=== PATIENT | female | born 1995 | race Caucasian/White ===

== ENCOUNTER 2018-09-28 23:11 | Observation (INO) | payer OTHER ==
[2018-09-28] MEDS: EPINEPHrine 1 MG INJ IM (23:29)
[2018-09-28] MEDS: FAMOTIDINE 20 MG INJ IV (23:40)
[2018-09-28] MEDS: DIPHENHYDRAMINE 50 MG INJ IV (23:40)
[2018-09-28] MEDS: METHYLPREDNISOLONE 125 MG INJ IV (23:40)
[2018-09-28] MEDS: ALBUTEROL 0.083% (NEB) 2.5 MG/3 ML AMP INH (23:42)
[2018-09-29] MEDS: RACEPINEPHRINE 2.25%(NEB) 0.5 ML AMP HHN ×3 (02:03→15:41)
[2018-09-29 02:04] LABS: ADD MAN DIFF? NO
[2018-09-29 02:05] LABS: ABNORMAL IP MESSAGE 1; BASOPHILS % 0.1 % (0.0-2.0); HEMATOCRIT 35.2 % (37.0-47.0); HEMOGLOBIN 11.9 g/dl (12.0-16.0); LYMPHOCYTES # 0.4 10^3/ul (0.8-2.9); MEAN CORPUSCULAR HEMOGLOBIN 31.3 pg (29.0-33.0); MEAN CORPUSCULAR HGB CONC 33.8 g/dl (32.0-37.0); MEAN CORPUSCULAR VOLUME 92.6 fl (82.0-101.0); MONOCYTE # 0.1 10^3/ul (0.3-0.9); NEUTROPHIL # 9.8 10^3/ul (1.6-7.5); NEUTROPHILS % 94.4 % (39.0-77.0); PLATELET COUNT 252 10^3/UL (140-415); RED CELL DISTRIBUTION WIDTH 12.5 % (11.5-14.5)
[2018-09-29 02:05] LABS: WHITE BLOOD COUNT 10.3 10^3/ul (4.8-10.8)
[2018-09-29 02:15] LABS: POSITIVE DIFF @See below
[2018-09-29 02:26] LABS: ANION GAP 14 (5-13); BLOOD UREA NITROGEN 8 mg/dl (7-20); CALCIUM 9.1 mg/dl (8.4-10.2); CARBON DIOXIDE 17 mmol/L (21-31); CHLORIDE 113 mmol/L (97-110); CREATININE 0.61 mg/dl (0.44-1.00); Estimated GFR > 60 mL/min (>60); GLUCOSE 206 mg/dl (70-220); POTASSIUM 3.5 mmol/L (3.5-5.1); SODIUM 144 mmol/L (135-144)
[2018-09-29] MEDS ORDERED: ONDANSETRON 4 MG INJ IV ×2 (03:00)
[2018-09-29] MEDS ORDERED: NACL 0.9% 3 ML SYG IV (03:00)
[2018-09-29] MEDS ORDERED: ACETAMINOPHEN 325 MG TAB PO ×2 (03:00)
[2018-09-29] MEDS ORDERED: DOCUSATE SODIUM 100 MG CAP PO (03:00)
[2018-09-29] MEDS ORDERED: ALBUTEROL 0.083% (NEB) 2.5 MG/3 ML AMP HHN (03:00)
[2018-09-29] MEDS ORDERED: BISACODYL (EC) 5 MG TAB PO (03:00)
[2018-09-29] MEDS: SOD CHLORIDE 0.9% 1,000 ML IV (05:04)
[2018-09-29] MEDS: LORAZEPAM 2 MG INJ IV (05:44)
[2018-09-29] MEDS: METHYLPREDNISOLONE 40 MG INJ IV (05:44)
[2018-09-29 07:05] LABS: ETHANOL < 10.0 mg/dl (0-0)
[2018-09-29 07:23] LABS: AADO2 Arterial 22.3 mmHg (7.0-24.0); Allen Test ACCEPTAB; Arterial Base Excess -2.7 mmol/L (-3.0-3); Arterial Blood Gas Oxygen Sat 98.4 mmHG (95.0-98.0); Arterial COHb 0.3 % (0.0-3.0); Arterial Fraction of Oxyhgb 97.8 % (93.0-99.0); Arterial HCO3 17.3 mmol/L (22.0-26.0); Arterial MetHb 0.3 % (0.0-1.5); Arterial pCO2 19.8 mmhg (35-45); MODE NASAL CANNULA; Site Right Radial
[2018-09-29] MEDS: FAMOTIDINE 20 MG INJ IV (08:50)
[2018-09-29 09:28] LABS: ADD UMIC YES; UR ASCORBIC ACID NEGATIVE (NEGATIVE); UR BACTERIA FEW /HPF (NONE SEEN); UR BILIRUBIN (Dip) NEGATIVE (NEGATIVE); UR BLOOD (Dip) 2+ mg/dL (NEGATIVE); UR CLARITY CLEAR (CLEAR); UR COLOR YELLOW (YELLOW); UR GLUCOSE (Dip) NEGATIVE (NEGATIVE); UR KETONES (Dip) 2+ mg/dL (NEGATIVE); UR LEUKOCYTE ESTERASE (Dip) NEGATIVE Leu/ul (NEGATIVE); UR NITRITE (Dip) NEGATIVE (NEGATIVE); UR RBC 13 /HPF (0-5); UR SPECIFIC GRAVITY (Dip) 1.012 (1.003-1.030); UR SQUAMOUS EPITHELIAL CELL FEW /HPF (FEW); UR TOTAL PROTEIN (Dip) NEGATIVE (NEGATIVE); UR UROBILINOGEN (Dip) NEGATIVE (NEGATIVE); UR WBC 1 /HPF (0-5)
[2018-09-29 09:47] LABS: AMPHETAMINE/METHAMPHETAMINE Negative (NEGATIVE); BARBITURATES Negative (NEGATIVE); BENZODIAZEPINES Negative (NEGATIVE); CANNABINOIDS Negative (NEGATIVE); COCAINE Negative (NEGATIVE); OPIATES Negative (NEGATIVE)
[2018-09-29] MEDS: IOHEXOL 350MG/ML 50 ML BTL ×2 (11:38→12:33)
[2018-09-29] MEDS: IOHEXOL 0 ML (11:38)
[2018-09-29] MEDS: SOD CHLORIDE 0.9% 100 ML (12:30)
[2018-09-29] MEDS: IOHEXOL 100 ML (12:33)
[2018-09-29] MEDS: DIPHENHYDRAMINE 50 MG INJ IV (14:23)
[2018-09-29] MEDS: DIPHENHYDRAMINE 50 MG CAP PO (15:30)
[2018-09-29 15:38] LABS: SALICYLATE < 1.0 mg/dl (5.0-30.0)
[2018-09-30] MEDS ORDERED: predniSONE 20 MG TAB PO (09:00)
== END 2018-09-29 17:15 | disposition left against medical advice (07) ==
LOC: E/R 23:11 → PP2 09-29 02:42
DX: T78.1XXA Other adverse food reactions, not elsewhere classified, initial encounter (principal); E87.2 Acidosis; R06.02 Shortness of breath; X58.XXXA Exposure to other specified factors, initial encounter
CPT/HCPCS: 36600; 70490; 71045; 71275; 80048; 80307; 81001; 82803; 84703; 85025; 85378; 93005; 94640; 94664; G0378

== ENCOUNTER 2018-10-02 13:00 | Emergency (ER) | payer OTHER ==
[2018-10-02] MEDS: SOD CHLORIDE 0.9% 1,000 ML IV (13:43)
[2018-10-02] MEDS: DEXAMETHASONE 10 MG/ML 1 ML INJ IV (13:43)
[2018-10-02] MEDS: DIPHENHYDRAMINE 50 MG INJ IV (13:43)
[2018-10-02] MEDS: RACEPINEPHRINE 2.25%(NEB) 0.5 ML AMP HHN (13:50)
== END 2018-10-02 16:22 | disposition home or self-care (01) ==
LOC: E/R 13:00
DX: R06.02 Shortness of breath (principal); Z91.040 Latex allergy status
CPT/HCPCS: 94664; 96374; 96375; 99284-25